=== PATIENT | male | born 1955 | race Two or more races ===

== ENCOUNTER 2025-03-13 11:40 | Outpatient (AMB) | payer OTHER, SELFPAY ==
[2025-03-13 12:20] VITALS: BP 118/79; PULSE 68; RESP 18; TEMP 36.7; O2SAT 93; BMI 29.7
--- NOTE | 2025-03-13 12:20 | GSCOFFNT_ITS ---
[facility]s - [facility] 03/13/25 12:20 Height 1.7 m Height Method Measured Weight 86.183 kg Weight Measurement Method Standing Scale BMI 29.7 BP 118/79 Blood Pressure Source Automatic Cuff Blood Pressure Location Left Upper Arm Position Sitting Respiration 18 Pulse 68 Pulse Source Monitor Temp 98.1 F Temp Source Temporal Artery Scan Pulse Oximetry (%) 93 L Oxygen Delivery Method Room Air Med/Allergies Allergies & Medications Allergies No Known Allergies Allergy (Verified 03/13/25 12:21) Medication Reconciliation Unobtainable 03/13/25 [History Confirmed 03/13/25] MA Intake Visit Data Collection New Patient or Established: New Patient (never been to [facility]) Seen by Clinical Staff ONLY (RN/MA): No Reason for Visit:: REFERRAL GALLSTONES Pain Present Currently: No Pain Scale Used: Dill-Camp/Numerical Plastic Fixture Builder Required: No PCP or OBGYN visit in last 3 months: Yes Hx Now: No Do You Feel Safe at Home: Yes Authorities Contacted: N/A Smoking Status Smoking Status: Never smoker Immunization / Flu Flu Vaccine in the Last 12 Months: Yes Flu Vaccine Exclusion Criteria: Already Received Past Medical History Social History SMOKING STATUS: Smoking status: Never smoker HPI HPI Narrative HISTORY OF PRESENT ILLNESS I, Myesha Melchor, have obtained verbal consent from the patient, to be recorded during this encounter which may include, but not limited to, medical history, examination, treatment plans, and relevant health information.? Patient was informed that recording will be read and reviewed by myself before inclusion in the medical chart. The patient presents for gallbladder disease. He is accompanied by an adult female. He experienced severe pain, accompanied by jaundice, sweating, and swelling. He also reported episodes of vomiting. The pain was localized to the right side. He was discharged from the hospital on 02/26/2025 and has since experienced pain only once, on 02/28/2025. He does not believe his diet influences the pain. He recalls a similar episode of severe pain the day before his hospital admission. During his hospital stay, surgery was considered but ultimately decided against after it was determined to be elective. Since being home he has been minimizing fatty foods and overall feels well PMH: Dementia, HTN, HLD PSHx: Umbilical hernia repair Meds: Plavix (per family it was prescribed by his PCP, he has not had any cardiac procedure), lisinopril, memantine, atorvastatin Allergies: NKDA Social hx: Nonsmoker ROS Review of Systems Systems Reviewed: All systems reviewed, normal except as documented Objective/Exam General General Appearance: alert, cooperative and well groomed Resp Respiratory exam: Absent respiratory distress Abdominal Abdominal exam: Present soft and tenderness (minimal RUQ tenderness); Absent distention Results CT results reviewed Assessment & Plan Diagnosis / Problem List (1) Symptomatic cholelithiasis: Status: Acute Assessment & Plan: Pt's symptoms are consistent with symptomatic cholelithiasis. I explained that I would like to review the results of the MRCP which was apparently done after the referral, and that pt should follow up with his PCP for preoperative evaluation before proceeding with surgery. I explained benefits/risks of surgery including need for conversion to open, bleeding, infection, injury to nearby structures requiring further procedures which could require transfer to another hospital, as well as postoperative hernia and diarrhea. All questions were answered and patient and family expressed understanding Plan: Obtain MRCP results Appreciate preoperative evaluation by PCP F/u in 3 weeks Advanced Care Planning Advance care planning discussed with:: other Office Procedures GNS Level of Care Nursing/Assessment Patient Status: Initial/New Patient Nursing Assessment/Reassesment: Medication Reconciliation, Update PMH in EMR and Vital Signs Coordination of Care: Complex Care and Chronic Disease 1-5, Education Complex Pt/Fam, Consent,records obtained, informed consent, Results/Orders obtained and Staff clarify orders Special Needs: Language special needs New Patient Charge New Patient Point Assignment: [id number] New Patient Point Charge: RIPENING ROOM ATTENDANT Level 3 ([id number]) Patient Portal Questionaires Social History Tobacco History Smoking Status: Never smoker Domestic Abuse History Do You Feel Safe at Home: Yes Review of Systems Report any current symptoms Only answer those that you have currently: Past Medical History Past Medical History Have you ever been diagnosed with any of the following:
== END 2025-03-13 12:17 | disposition home or self-care (01) ==
LOC: HODSRG 11:40
PROVIDERS: PCP Family Medicine; Referring Provider Family Medicine; Supervising Provider Surgery; Visit Provider Surgery
DX: K82.9 Disease of gallbladder, unspecified (principal); I10 Essential (primary) hypertension; F03.90 Unspecified dementia, unspecified severity, without behavioral disturbance, psychotic disturbance, mood disturbance, and anxiety
CPT/HCPCS: 99203; G0463

== ENCOUNTER 2025-04-27 10:04 | Outpatient (AMB) | payer OTHER, SELFPAY ==
[2025-04-27 10:11] VITALS: BP 148/82; PULSE 72; RESP 19; TEMP 36.8; O2SAT 93; BMI 30.1
--- NOTE | 2025-04-27 10:11 | PD.GSCLVISIT ---
[facility]s - [facility] 04/27/25 10:11 Height 1.7 m Height Method Measured Weight 87.146 kg Weight Measurement Method Standing Scale BMI 30.1 BP 148/82 H Blood Pressure Source Automatic Cuff Blood Pressure Location Left Upper Arm Position Sitting Respiration 19 Pulse 72 Pulse Source Monitor Temp 98.3 F Temp Source Temporal Artery Scan Pulse Oximetry (%) 93 L Oxygen Delivery Method Room Air Med/Allergies Allergies & Medications Allergies No Known Allergies Allergy (Verified 04/27/25 10:12) Medication Reconciliation Unobtainable 03/13/25 [History Confirmed 04/27/25] MA Intake Visit Data Collection New Patient or Established: Established Patient (seen at [facility] within 3 years) Seen by Clinical Staff ONLY (RN/MA): No Reason for Visit:: 3 WEEK F/U GALLBLADDER Pain Present Currently: No Pain Scale Used: Dill-Camp/Numerical Town Clerk Required: Yes PCP or OBGYN visit in last 3 months: Yes Hx Now: No Do You Feel Safe at Home: Yes Authorities Contacted: N/A Smoking Status Smoking Status: Never smoker Immunization / Flu Flu Vaccine in the Last 12 Months: Yes Flu Vaccine Exclusion Criteria: Already Received Past Medical History Social History SMOKING STATUS: Smoking status: Never smoker HPI HPI Narrative 69M here for follow up of symptomatic cholelithiasis. Pt had been hospitalized in 02/2025 for severe pain, nausea/vomiting and jaundice, with findings of cholelithiasis for which he was referred to elective surgery. At last visit MRCP was pending but this has since been done showing a decompressed gallbladder containing several stones up to 7mm, CBD 4.4mm and diffuse fatty infiltration of the liver. Per pt and his sister, he has not had any episodes of pain since then. He is eating his regular diet, not restricting any foods and has even gained a bit of weight. At baseline he is able to walk several blocks/up flights of stairs and is partially dependent on his siblings for his ADLs (he showers himself but needs help with the hot water and his siblings make sure he puts on clean clothes after) PMH: Dementia, HTN, HLD PSHx: Umbilical hernia repair Meds: Plavix (per family it was prescribed by his PCP, he has not had any cardiac procedure), lisinopril, memantine, atorvastatin Allergies: NKDA Social hx: Nonsmoker ROS Review of Systems Systems Reviewed: All systems reviewed, normal except as documented Objective/Exam General General Appearance: alert, cooperative and well groomed Resp Respiratory exam: Absent respiratory distress Abdominal Abdominal exam: Present soft; Absent distention, tenderness or Robins's sign Results CT, US and MRCP results reviewed. There is some mention of gallbladder remnant but pt and sister confirm he has never had gallbladder surgery, and he does not have any abdominal incisions that would be consistent Assessment & Plan Diagnosis / Problem List (1) Symptomatic cholelithiasis: Status: Acute Assessment & Plan: 69M with dementia, HTN, and HLD here for follow up of symptomatic cholelithiasis. I explained to pt and his sister that given his episode requiring hospitalization, it is reasonable to consider surgery to prevent future episodes. I enumerated benefits/risks including need for conversion to open, bleeding, infection potentially requiring percutaneous drain placement as well as the possibility of biliary injury requiring major reconstructive surgery which would need to be done at a tertiary hospital. I also provided his particular ACS NSQIP risk which was calculated at 3% for serious complication and 5% for any complication. Pt's sister would like to discuss with her other siblings and will reach out after Advanced Care Planning Advance care planning discussed with:: other Office Procedures GNS Level of Care Nursing/Assessment Patient Status: Established Patient Nursing Assessment/Reassesment: Medication Reconciliation, Update PMH in EMR and Vital Signs Coordination of Care: Complex Care and Chronic Disease 1-5, Education Complex Pt/Fam, Consent,records obtained, informed consent, Results/Orders obtained and Staff clarify orders Special Needs: Language special needs Established Patient Charge Established Patient Point Assignment: 95 Established Patient Point Charge: EP Level 3 (80-115) Patient Portal Questionaires Social History Tobacco History Smoking Status: Never smoker Domestic Abuse History Do You Feel Safe at Home: Yes Review of Systems Report any current symptoms Only answer those that you have currently: Past Medical History Past Medical History Have you ever been diagnosed with any of the following:
== END 2025-04-27 10:54 | disposition home or self-care (01) ==
LOC: HODSRG 10:04
PROVIDERS: PCP Family Medicine; Referring Provider Family Medicine; Supervising Provider Surgery; Visit Provider Surgery
DX: K80.20 Calculus of gallbladder without cholecystitis without obstruction (principal); I10 Essential (primary) hypertension; F03.90 Unspecified dementia, unspecified severity, without behavioral disturbance, psychotic disturbance, mood disturbance, and anxiety
CPT/HCPCS: 99213; G0463